=== PATIENT | female | born 1990 | race Caucasian/White ===

== ENCOUNTER 2017-01-16 15:07 | Emergency (ER) | payer OTHER ==
[2017-01-16 15:12] VITALS: BMI 22.3
--- NOTE | 2017-01-16 15:20 | PDOC ---
Attending Attestation - Resident Resident Name: Yovani Ruiz - ED Attending Attestation I have performed the following: I have examined & evaluated the patient, The case was reviewed & discussed with the resident, I agree w/resident's findings & plan, Exceptions are as noted
[2017-01-16] MEDS ORDERED: HYDROmorphone HCL CARPU-JECT 1 MG/1 ML DISP.SYRIN IVPUSH ONE (15:40)
[2017-01-16] MEDS ORDERED: ONDANSETRON 4 MG/2 ML VIAL IVPUSH ONE ×2 (15:43→18:08)
[2017-01-16] MEDS ORDERED: SODIUM CHLORIDE 1,000 ML IV STA (15:44)
--- NOTE | 2017-01-16 15:45 | PDOC ---
History of Present Illness - General Chief Complaint: Pain Stated Complaint: rlq ABD PAIN/flank pain Time Seen by Provider: 01/16/17 15:18 - History of Present Illness Initial Comments: 01/16/17 15:46 Patient is a 26F with a PMH significant for kidney stones here today complaining of abdominal pain. The pain started last night as generalized abdominal pain, then in the morning the pain has located in the lower right quadrant radiating to the right flank and groin. She denies fevers, chills, vomiting and blood in urine. She endorses nausea. She states that the pain feels like prior kidney stones she's had in the past. Past History - Past Medical History Allergies/Adverse Reactions: Allergies Allergy/AdvReac Type Severity Reaction Status Date / Time bupropion HCl Allergy Verified 01/16/17 15:08 [From Wellbutrin] Home Medications: Ambulatory Orders Cyanocobalamin (Vitamin B-12) [Vitamin B-12] 500 mcg PO DAILY 01/16/17 Esomeprazole Magnesium [Nexium 24Hr] 22.3 mg PO DAILY 01/16/17 Folic Acid - 1 mg PO DAILY 01/16/17 Levetiracetam [Keppra -] 750 mg PO BID 01/16/17 Oxycodone HCl/Acetaminophen [Percocet 5-325 mg Tablet] 1 tab PO Q6H PRN #14 tablet MDD 4 01/16/17 Prednisone [Deltasone -] 20 mg PO DAILY 01/16/17 Sertraline HCl [Zoloft] 100 mg PO DAILY 01/16/17 Trazodone HCl [Desyrel -] 50 mg PO HS 01/16/17 Kidney Stones: Yes Psychiatric Problems: Yes (anxeity) Seizures: Yes Other medical history: connective tissure disease, gastropresis,migraines - Surgical History Abdominal Surgery: Yes (lt ing hernia in 1996) - Psycho/Social/Smoking Cessation Hx Anxiety: No Suicidal Ideation: No Smoking History: Never smoked Have you smoked in the past 12 months: No Information on smoking cessation initiated: No Hx Alcohol Use: No Drug/Substance Use Hx: No Substance Use Type: None Review of Systems - Review of Systems Constitutional: No: Chills, Fever Respiratory: No: Shortness of Breath Cardiac (ROS): No: Chest Pain ABD/GI: Yes: Nausea. No: Constipated, Diarrhea, Vomiting : Yes: Flank Pain. No: Hematuria Neurological: No: Headache *Physical Exam - Vital Signs Last Vital Signs Temp Pulse Resp BP Pulse Ox 98.7 F 94 H 18 107/69 100 01/16/17 15:09 01/16/17 15:09 01/16/17 15:09 01/16/17 15:09 01/16/17 15:09 - Physical Exam Comments: 01/16/17 15:53 Gen: Well nourished, in moderate distress Neuro: Alert, oriented, CN2-12 intact CV: RRR, no murmurs rubs or gallops Lungs: Clear to auscultation bilaterally, normal work of breathing Abdomen: Tender in lower part of RLQ. No rebound, no guarding, no peritoneal signs. Normal bowel sounds. Ext: 2+ pulses bilaterally in lower extremity, no edema ED Treatment Course - LABORATORY CBC & Chemistry Diagram: 01/16/17 15:55 01/16/17 15:55 Medical Decision Making - Medical Decision Making 01/16/17 15:56 26F with history of kidney stones here today complaining of kidney stones. Vital signs are normal and stable. Differential for abdominal pain includes kidney stones, appendicitis, ovarian torsion, ectopic and others. Getting test, urinanalysis, CBC, and CMP. Treating pain and nausea with dilaudid, zofran, and fluids. Ordering pelvic and kidney ultrasound. Will reassess. 01/16/17 16:32 Pain was not controlled with 0.5mg hydromorphone. Given 30mg toradol. Continuing fluids. 01/16/17 18:40 Pain controlled after additional hydromophone and fluids. Ultrasound pending. 01/16/17 19:48 Ultrasound normal. UA positive for blood on dipstick, but RBCs are <5. Still in pain and nauseous. Given percocet and tigan. Discussed results with patient. It was revealed that the patient has a connective tissue disease with gastroparesis and esophageal dysmotility. We still have not satisfactorily found an etiology for the abdominal pain. Will do CT with oral and iv contrast to evaluate for other intra-abdominal pathologies. 01/16/17 23:58 CT normal. Able to tolerate PO. Pain controlled with PO medication. Has no history of chemotherapy, cancer, HIV or other concerning medical history for a possible acute abdomen. Will discharge to home. *DC/Admit/Observation/Transfer Diagnosis at time of Disposition: Abdominal pain Qualifiers: Abdominal location: right lower quadrant Qualified Code(s): R10.31 - Right lower quadrant pain - Discharge Dispostion Disposition: HOME Condition at time of disposition: Improved - Prescriptions Prescriptions: Oxycodone HCl/Acetaminophen [Percocet 5-325 mg Tablet] 1 tab PO Q6H PRN #14 tablet MDD 4 PRN Reason: Pain - Patient Instructions Printed Discharge Instructions: DI for Abdominal Pain-Adult - Attestations Physician Attestion: 01/16/17 23:57 I, Dr. Yovani Ruiz, attest that this document has been prepared under my direction and personally reviewed by me in its entirety. I further attest, that it accurately reflects all work, treatment, procedures and medical decision -making performed by me.
[2017-01-16] MEDS ORDERED: HYDROmorphone HCL CARPU-JECT 1 MG/1 ML DISP.SYRIN ONE ×2 (16:02→16:56)
[2017-01-16] MEDS ORDERED: ONDANSETRON 4 MG/2 ML VIAL ONE ×2 (16:02→18:10)
[2017-01-16 16:05] LABS: BASOPHIL 0.2 % (0-2.0); EOSINOPHIL 0.1 % (0-4.5); MCH 28.7 pg (25.7-33.7); MEAN CELL VOLUME 87.2 fl (80-96); MEAN PLT VOLUME 8.3 fl (7.5-11.1); NEUTROPHILS 87.9 % (42.8-82.8); PLATELET COUNT 257 K/MM3 (134-434); RDW 12.5 % (11.6-15.6); WHITE BLOOD COUNT 8.6 K/mm3 (4.0-10.0)
[2017-01-16 16:22] LABS: URINE APPEARANCE CLEAR; URINE BILIRUBIN NEGATIVE (NEGATIVE); URINE BLOOD 2+ (NEGATIVE); URINE COLOR STRAW; URINE GLUCOSE (UA) NEGATIVE (NEGATIVE); URINE KETONE NEGATIVE (NEGATIVE); URINE LEUK ESTERASE NEGATIVE (NEGATIVE); URINE NITRITE NEGATIVE (NEGATIVE); URINE PROTEIN NEGATIVE (NEGATIVE); URINE UROBILINOGEN NEGATIVE E.U./dl (0.2-1.0)
[2017-01-16] MEDS ORDERED: KETOROLAC TROMETHAMINE 30 MG/1 ML VIAL IVPUSH ONE (16:27)
[2017-01-16] MEDS ORDERED: KETOROLAC TROMETHAMINE 30 MG/1 ML VIAL ONE (16:27)
[2017-01-16 16:31] LABS: ALBUMIN 4.3 g/dl (3.4-5.0); ANION GAP 7 (8-16); BILIRUBIN,TOTAL 0.2 mg/dL (0.2-1.0); CO2 27 mmol/L (21-32); CREATININE 0.8 mg/dL (0.55-1.02); GLUCOSE,RANDOM 108 mg/dL (74-106); SGOT/AST 15 U/L (15-37); SGPT/ALT 24 U/L (12-78); TOT PROT 7.8 g/dl (6.4-8.2)
[2017-01-16 16:32] LABS: ALK PHOS 60 U/L (45-117)
[2017-01-16 16:44] LABS: URINE MUCUS RARE; URINE RBC 3 /hpf (0-3); URINE WBC <1 /hpf (3-5)
[2017-01-16] MEDS ORDERED: HYDROmorphone HCL CARPU-JECT 1 MG/1 ML DISP.SYRIN IVPB ONE (17:11)
[2017-01-16] MEDS ORDERED: OXYCODONE/APAP 5/325MG COMBO TABLET PO ONE ×2 (18:50→22:31)
[2017-01-16 18:59] VITALS: TEMP 97.8
[2017-01-16] MEDS ORDERED: TRIMETHOBENZAMIDE HCL 300 MG CAPSULE PO ONE (19:12)
[2017-01-16] MEDS ORDERED: SODIUM CHLORIDE 500 ML IV STA ×2 (19:17→22:30)
[2017-01-16] MEDS ORDERED: OXYCODONE/APAP 5/325MG COMBO TABLET ONE ×2 (19:19→22:35)
[2017-01-16 23:19] VITALS: BP 102/57; PULSE 60
== END 2017-01-17 00:12 | disposition home or self-care (01) ==
LOC: JER 15:07
PROC: 3E0337Z Introduction of Electrolytic and Water Balance Substance into Peripheral Vein, Percutaneous Approach (ICD-10-PCS; principal; 2017-01-16)
PROC: 3E033NZ Introduction of Analgesics, Hypnotics, Sedatives into Peripheral Vein, Percutaneous Approach (ICD-10-PCS; 2017-01-16)
PROC: 3E0333Z Introduction of Anti-inflammatory into Peripheral Vein, Percutaneous Approach (ICD-10-PCS; 2017-01-16)
PROC: 3E033GC Introduction of Other Therapeutic Substance into Peripheral Vein, Percutaneous Approach (ICD-10-PCS; 2017-01-16)
DX: R10.31 Right lower quadrant pain (principal); G40.909 Epilepsy, unspecified, not intractable, without status epilepticus; F41.9 Anxiety disorder, unspecified; Z87.442 Personal history of urinary calculi
CPT/HCPCS: 36415; 74177-TC; 76775-TC; 76856-TC; 80053; 81003; 81015; 84703; 85025; 99283-25